=== PATIENT | female | born 1980 ===

== ENCOUNTER 2018-07-29 16:36 | Inpatient (IN) | payer OTHER ==
[~2018-07-29] VITALS: Ht 157.5 cm; Wt 67.6 kg
[2018-07-29] MEDS ORDERED: PRENATAL FORMU1 EAC1 PO (18:23)
[2018-07-29] MEDS ORDERED: IRON325 MG PO (18:23)
[2018-08-04] MEDS ORDERED: IRON325 MG PO (20:56)
[2018-08-04] MEDS ORDERED: NIFEDIPINE20 MG PO (20:56)
== END 2018-08-04 21:22 | DRG 833 ==
LOC: LDR 16:36 → OB/GYN 16:36
PROVIDERS: ADMIT Obstetrics & Gynecology
PROC: 4A1HXCZ Monitoring of Products of Conception, Cardiac Rate, External Approach (ICD-10-PCS; principal; 2018-07-29)
PROC: BY4FZZZ Ultrasonography of Third Trimester, Single Fetus (ICD-10-PCS; 2018-07-29)
PROC: BU4CZZZ Ultrasonography of Uterus and Ovaries (ICD-10-PCS; 2018-07-29)
DX: O60.03 Preterm labor without delivery, third trimester (principal); Z34.83 Encounter for supervision of other normal pregnancy, third trimester

== ENCOUNTER 2018-08-29 14:32 | Inpatient (IN) | payer OTHER ==
[~2018-08-29] VITALS: Ht 157.5 cm; Wt 68.9 kg
[~2018-08-29 14:32] MED LIST: IRON325 MG PO; NIFEDIPINE20 MG PO; PRENATAL FORMU1 EAC1 PO
[2018-08-31] MEDS ORDERED: DOCUSATE SODIU100 MG PO (12:28)
[2018-08-31] MEDS ORDERED: PRENATAL FORMU1 EAC1 PO (12:28)
[2018-08-31] MEDS ORDERED: Dermoplast SPRAY TOP (12:28)
== END 2018-08-31 13:57 | disposition home or self-care (01) | DRG 807 ==
LOC: LDR 14:32 → OB/GYN 21:08
PROVIDERS: ADMIT Obstetrics & Gynecology
PROC: 10E0XZZ Delivery of Products of Conception, External Approach (ICD-10-PCS; principal; 2018-08-29)
PROC: 10907ZC Drainage of Amniotic Fluid, Therapeutic from Products of Conception, Via Natural or Artificial Opening (ICD-10-PCS; 2018-08-29)
PROC: 0W8NXZZ Division of Female Perineum, External Approach (ICD-10-PCS; 2018-08-29)
PROC: 3E033VJ Introduction of Other Hormone into Peripheral Vein, Percutaneous Approach (ICD-10-PCS; 2018-08-29)
PROC: 4A1HXCZ Monitoring of Products of Conception, Cardiac Rate, External Approach (ICD-10-PCS; 2018-08-29)
DX: O80 Encounter for full-term uncomplicated delivery (principal); Z37.0 Single live birth; Z3A.38 38 weeks gestation of pregnancy